=== PATIENT | female | born 1975 | race Caucasian/White ===

== ENCOUNTER 2017-03-25 16:26 | Emergency (ER) | payer MEDICAID ==
[2017-03-25 16:37] VITALS: BP 116/73
[2017-03-25] MEDS ORDERED: DEXAMETHASONE 10 MG/ML VIAL PO STA (17:27)
[2017-03-25] MEDS ORDERED: KETOROLAC 60 MG/2 ML VIAL IM STA (17:30)
--- NOTE | 2017-03-25 17:39 | ED Physician Documentation ---
PD HPI UPPER EXT INJURY - Stated complaint Stated Complaint: L SHOULDER PX-INJ - Chief complaint Chief Complaint: Ext Problem - History obtained from History obtained from: Patient - History of Present Illness Location: Left, Shoulder Type of injury: Other (use with mowing the lawn) Where injury occurred: Home Timing - onset: How many weeks ago (1) Timing - duration: Weeks (1) Timing - details: Gradual onset, Still present Improved by: Rest, Immobilization Worsened by: Moving, Palpating Associated symptoms: No: Weakness, Numbness, Tingling, Swelling Contributing factors: No: Anticoagulated Similar symptoms before: Has not had sx before Recently seen: Not recently seen - Additonal information Additional information: 41 y/o female with pain in the left shoulder. This started while she was mowing the lawn and it has not improved and in fact is worse Review of Systems Constitutional: denies: Fever Eyes: denies: Decreased vision Ears: denies: Ear pain Nose: denies: Congestion Throat: denies: Sore throat Respiratory: denies: Dyspnea, Cough GI: denies: Vomiting : denies: Dysuria Musculoskeletal: reports: Neck pain, Extremity pain, Joint pain Neurologic: denies: Generalized weakness, Focal weakness PD PAST MEDICAL HISTORY - Past Medical History Past Medical History: Yes Cardiovascular: None Respiratory: Asthma, Pneumonia Neuro: Headache/migraine Endocrine/Autoimmune: None GI: None FINISH SPECIALIST: None : None Psych: Depression, Anxiety, Panic attacks, Post traumatic stress disorder Musculoskeletal: None Derm: None - Past Surgical History Past Surgical History: Yes /FINISH SPECIALIST: Tubal ligation, Other - Present Medications Home Medications: Ambulatory Orders Medication Instructions Recorded Confirmed Hydroxyzine Pamoate 100 mg ORAL QID 06/16/15 03/25/17 busPIRone [Buspar] 10 mg ORAL TID 06/16/15 03/25/17 traZODone [Desyrel] 400 mg ORAL DAILY 06/16/15 03/25/17 Albuterol Sulfate [Proair Hfa 8.5 gm IH QID #1 hfa.aer.ad 08/06/15 03/25/17 Inhaler] HYDROcod/ACETAM 5/325 [[place] 5/325] 1 - 2 ea PO Q6H PRN #15 tablet 03/25/17 - Allergies Allergies/Adverse Reactions: Allergies Allergy/AdvReac Type Severity Reaction Status Date / Time risperidone [From Risperdal] Allergy Respiratory Verified 06/16/15 19:14 - Social History Does the pt smoke?: Yes Smoking Status: Current every day smoker Does the pt drink ETOH?: No Does the pt have substance abuse?: No - Immunizations Immunizations are current?: Yes - POLST Patient has POLST: No PD ED PE NORMAL - Vitals Vital signs reviewed: Yes (normal ) - General General: No acute distress, Well developed/nourished - HEENT HEENT: Atraumatic, PERRL, EOMI - Neck Neck: Supple, no meningeal sign, No bony TTP - Respiratory Respiratory: No respiratory distress - Derm Derm: Normal color, Warm and dry, No rash - Extremities Extremities: No deformity, No edema, Other (There is tenderness anteriorly to the deltoid there is pain with ROM and she is able to hold the shoulder in abduction. The distal N/V is intact. There is some tenderness to the supraspinatous as well..) Results - Vitals Vitals: Vital Signs - 24 hr 03/25/17 16:36 Temperature 36.8 C Heart Rate 92 Respiratory 18 Rate Blood Pressure 116/73 O2 Saturation 100 Oxygen O2 Source Room air - Rads (name of study) left shoulder Radiology: Prelim report reviewed (Impression normal shoulder radiography.), EMP read indepedently, See rad report PD MEDICAL DECISION MAKING - ED course Complexity details: reviewed results, re-evaluated patient, considered differential, d/w patient ED course: 41 y/o female with pain in the left shoulder from over use appears to have bursitis and she is given decadron and toradal and placed into a sling. Departure - Departure Disposition: 01 Home, Self Care Clinical Impression: Bursitis of left shoulder Condition: Stable Instructions: ED Bursitis Follow-Up: Tammi Hanna ARNP [Primary Care Provider] - [facility] [Provider Group] Prescriptions: HYDROcod/ACETAM 5/325 [[place] 5/325] 1 - 2 ea PO Q6H PRN #15 tablet PRN Reason: Pain
[2017-03-25] MEDS ORDERED: DEXAMETHASONE 10 MG/ML VIAL ONE (17:40)
[2017-03-25] MEDS ORDERED: KETOROLAC 60 MG/2 ML VIAL ONE (17:40)
--- NOTE | 2017-03-25 18:01 | XRAY Preliminary Report ---
Exam: XR Shoulder 3 View LT IMPRESSION: Normal shoulder radiography. [facility] SITE ID: [id number]
--- NOTE | 2017-03-25 18:04 | XRAY Report ---
EXAM: LEFT SHOULDER RADIOGRAPHY EXAM DATE: 03/25/2017 05:41 PM. CLINICAL HISTORY: Pain with movement. COMPARISON: None. TECHNIQUE: 3 views. FINDINGS: Bones: Normal. No fracture or bone lesion. Joints: The glenohumeral and acromioclavicular joints are normal. Soft tissues: The visualized hemithorax is unremarkable. No soft tissue swelling. IMPRESSION: Normal shoulder radiography. [facility] Referring Provider Line: [phone] SITE ID: [id number]
[2017-03-25] MEDS ORDERED: HYDROcod/ACET 5/325 Prepack 6 PO ONE ×2 (18:24→18:28)
== END 2017-03-25 18:34 | disposition home or self-care (01) ==
LOC: ED 16:26
DX: M75.52 Bursitis of left shoulder (principal); J45.909 Unspecified asthma, uncomplicated; F17.200 Nicotine dependence, unspecified, uncomplicated
CPT/HCPCS: 96372; 99283; 99284

== ENCOUNTER 2017-06-13 08:00 | Outpatient (CLI) | payer MEDICAID ==
[2017-06-13 19:16] LABS: BASOPHILS % (AUTO) 0.5 %; HGB - HEMOGLOBIN 13.4 g/dL (12.0-16.0); LYMPHOCYTES # (AUTO) 2.8 10^3/uL (1.5-3.5); LYMPHOCYTES % (AUTO) 36.1 %; MEAN CORPUSCULAR HEMOGLOBIN 30.6 pg (27.0-31.0); MEAN CORPUSCULAR HGB CONC 33.5 g/dL (32.0-36.0); MEAN CORPUSCULAR VOLUME 91.4 fL (81.0-99.0); MEAN PLATELET VOLUME 7.9 fL (7.9-10.8); MONOCYTES # (AUTO) 0.6 10^3/uL (0.0-1.0); MONOCYTES % (AUTO) 7.6 %; NEUTROPHILS # (AUTO) 4.4 10^3/uL (1.5-6.6); NEUTROPHILS % (AUTO) 55.8 %; RED BLOOD COUNT 4.38 10^6/uL (4.20-5.40); UNCORRECTED WHITE BLOOD COUNT 7.9 x10^3/uL; WHITE BLOOD COUNT 7.9 x10^3/uL (4.8-10.8)
[2017-06-13 19:26] LABS: ALBUMIN/GLOBULIN RATIO 1.6 (1.0-2.2); BILIRUBIN,TOTAL 0.8 mg/dL (0.2-1.0); BUN - BLOOD UREA NITROGEN 10 mg/dL (6-20); CALCIUM 9.3 mg/dL (8.5-10.3); CARBON DIOXIDE - CO2 25 mmol/L (21-32); CHLORIDE 104 mmol/L (101-111); CREATININE 0.9 mg/dL (0.4-1.0); GFR - MDRD 69 (>89); GLUCOSE 89 mg/dL (70-100); POTASSIUM 3.8 mmol/L (3.5-5.0); SODIUM 137 mmol/L (135-145); TOTAL PROTEIN 7.3 g/dL (6.7-8.2)
== END 2017-06-13 08:01 | disposition home or self-care (01) ==
LOC: LAB.N 08:00
PROVIDERS: ATTEND Nurse Practitioner Gerontology
DX: Z79.899 Other long term (current) drug therapy (principal)
CPT/HCPCS: 36415; 80053; 84443; 85025

== ENCOUNTER 2018-09-25 21:10 | Emergency (ER) | payer MEDICAID ==
--- NOTE | 2018-09-25 22:06 | XRAY Report ---
Reason: injury, husb stepped on foot. Procedure Date: 09/25/2018 Accession Number: [id number] / [id number] Procedure: XR - Foot 3 View LT CPT Code: FULL RESULT: EXAM: LEFT FOOT RADIOGRAPHY EXAM DATE: 09/25/2018 09:53 PM. CLINICAL HISTORY: Left foot injury, stepped on foot. COMPARISON: None. TECHNIQUE: 3 views. FINDINGS: Bones: Normal. No fractures or bone lesions. Joints: Normal. No subluxations. Soft Tissues: Normal. No soft tissue swelling. IMPRESSION: Normal left foot radiography. [facility]
--- NOTE | 2018-09-25 22:08 | ED Physician Documentation ---
PD HPI LOWER EXT INJURY - Stated complaint Stated Complaint: LT FOOT PX - Chief complaint Chief Complaint: Trauma Ext - History obtained from History obtained from: Patient - History of Present Illness PD HPI LOW EXT INJURY LOCATION: Left (Her foot got stepped on a few days ago and reinjured it by dropping a box on it today. She points to the distal first and second metatarsals as the area of pain. 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 : None Psych: Depression, Anxiety, Panic attacks, Post traumatic stress disorder Musculoskeletal: None Derm: None - Past Surgical History Past Surgical History: Yes /FOREMAN OR SUPERVISOR AND OPERATOR: Tubal ligation, Other - Present Medications Home Medications: Ambulatory Orders Medication Instructions Recorded Confirmed busPIRone [Buspar] 10 mg ORAL TID 06/16/15 03/25/17 hydrOXYzine pamoate [Hydroxyzine 100 mg ORAL QID 06/16/15 03/25/17 Pamoate] traZODone [Desyrel] 400 mg ORAL DAILY 06/16/15 03/25/17 Albuterol Sulfate [Proair Hfa 8.5 gm IH QID #1 hfa.aer.ad 08/06/15 03/25/17 Inhaler] HYDROcod/ACETAM 5/325 [[place] 5/325] 1 - 2 ea PO Q6H PRN #15 tablet 03/25/17 Hydrocodone/Acetaminophen 1 - 2 each PO Q6H PRN #7 tablet 09/25/18 [Hydrocodon-Acetaminophen 5-325] - Allergies Allergies/Adverse Reactions: Allergies Allergy/AdvReac Type Severity Reaction Status Date / Time quetiapine [From Seroquel] Allergy Unknown Verified 09/25/18 21:36 risperidone [From Risperdal] Allergy Respiratory Verified 09/25/18 21:35 venlafaxine [From Effexor] Allergy Unknown Verified 09/25/18 21:36 - Social History Does the pt smoke?: Yes Smoking Status: Current every day smoker Does the pt drink ETOH?: No Does the pt have substance abuse?: No - Immunizations Immunizations are current?: Yes - POLST Patient has POLST: No PD ED PE NORMAL - Vitals Vital signs reviewed: Yes - General General: Alert and oriented X 3, No acute distress - Extremities Extremities: Other (Mild tenderness and swelling of the distal first and second metatarsals without deformity.) - Neuro Neuro: Alert and oriented X 3, Normal speech Results - Vitals Vitals: Vital Signs - 24 hr 09/25/18 21:33 Temperature 36.0 C L Heart Rate 76 Respiratory 16 Rate Blood Pressure 126/62 O2 Saturation 99 Oxygen O2 Source Room air - Rads (name of study) 3v L foot Radiology: EMP read contemporaneously (normal) Departure - Departure Disposition: Home, Self Care Clinical Impression: Injury of foot Qualifiers: Encounter type: initial encounter Laterality: left Qualified Code(s): S99.922A - Unspecified injury of left foot, initial encounter Condition: Good Record reviewed to determine appropriate education?: Yes Instructions: ED Contusion Foot Prescriptions: Hydrocodone/Acetaminophen [Hydrocodon-Acetaminophen 5-325] 1 - 2 each PO Q6H PRN #7 tablet PRN Reason: pain Comments: Recheck with your doctor in a week if not better
[2018-09-25] MEDS ORDERED: HYDROcod/ACET 5/325 Prepack 4 PO STA (22:09)
[2018-09-25 22:23] VITALS: BP 123/68
== END 2018-09-25 22:23 | disposition home or self-care (01) ==
LOC: ED 21:10
DX: S99.922A Unspecified injury of left foot, initial encounter (principal); W20.8XXA Other cause of strike by thrown, projected or falling object, initial encounter; F17.200 Nicotine dependence, unspecified, uncomplicated
CPT/HCPCS: 99283

== ENCOUNTER 2019-07-31 15:42 | Outpatient (CLI) | payer MEDICAID ==
--- NOTE | 2019-07-31 17:32 | Ultrasound Report ---
Reason: NAUSEA, ABDOMINAL PAIN Procedure Date: 07/31/2019 Accession Number: [id number] / [id number] Procedure: US - Abdomen Complete CPT Code: FULL RESULT: EXAM: ABDOMEN ULTRASOUND EXAM DATE: 07/31/2019 04:45 PM. CLINICAL HISTORY: NAUSEA, ABDOMINAL PAIN. COMPARISON: None. TECHNIQUE: Real-time scanning was performed with static images obtained. FINDINGS: Liver: The liver is mildly hyperechoic. There is a 9 mm circumscribed hyperechoic focus in the right hepatic lobe. 13.1 cm. Main portal vein flow: Hepatopetal. Gallbladder: Normal. No stones, wall thickening, or sonographic Bush's sign. Biliary System: Common bile duct measures 3 mm. No intrahepatic or extrahepatic ductal dilatation. Pancreas: There is a heterogeneous rounded 1.7 x 1.4 x 1.5 cm masslike lesion in the pancreatic body. No significant flow seen within this lesion. There is no associated pancreatic duct dilatation. No peripancreatic fluid collections. Kidneys: Right: 9.6 cm longitudinally. Normal. No contour-deforming mass, stones, or hydronephrosis. Left: 10.0 cm longitudinally. Normal. No contour-deforming mass, stones, or hydronephrosis. Spleen: 9 x 2.7 x 8.1 cm. Normal in size and echotexture. Aorta and Inferior Vena Cava: Unremarkable. Other: None. IMPRESSION: 1. Heterogeneous 1.7 cm masslike focus in the pancreatic body concerning for neoplasm versus focal pancreatitis. Dedicated pancreatic MRI or CT recommended for further characterization. 2. No evidence of cholelithiasis, cholecystitis or bile duct obstruction. 3. Mild fatty liver infiltration. There is a 9 mm hyperechoic focus in the right hepatic lobe most likely representing a hemangioma. This may be further characterized at time of above pancreatic imaging. [place] The call report notification system was initiated by Dr. Shakeel Ramirez at 05:27 PM on 07/31/2019. ADDENDUM: 07/31/19 17:50 The above call report findings were discussed with Julien by Dr. Shakeel Ramirez at 05:50 PM on 07/31/2019.
== END 2019-07-31 15:43 | disposition home or self-care (01) ==
LOC: DI 15:42
PROVIDERS: ATTEND Nurse Practitioner Gerontology
DX: R11.0 Nausea (principal); R10.9 Unspecified abdominal pain; K86.89 Other specified diseases of pancreas
CPT/HCPCS: 76700

== ENCOUNTER 2019-08-05 15:03 | Outpatient (CLI) | payer MEDICAID ==
[2019-08-05] MEDS ORDERED: IOVERSOL 320 100 ML VIAL IVP ONE ×2 (15:19→15:48)
--- NOTE | 2019-08-05 16:34 | CT Report ---
Reason: PANCREATIC LESION, NAUSEA, ABD PAIN Procedure Date: 08/05/2019 Accession Number: [id number] / [id number] Procedure: CT - ABDOMEN W/WO CPT Code: FULL RESULT: EXAM: CT ABDOMEN WITHOUT AND WITH CONTRAST EXAM DATE: 08/05/2019 03:45 PM. HISTORY: PANCREATIC LESION, NAUSEA, ABD PAIN. COMPARISON: ABDOMEN COMPLETE 07/31/2019 3:57 PM. TECHNIQUE: Routine helical CT imaging was performed through the abdomen before and after administration of IV contrast: 100 cc Optiray 320 IV. Enteric contrast: No. Reconstruction: Coronal and sagittal. In accordance with CT protocol optimization, one or more of the following dose reduction techniques were utilized for this exam: automated exposure control, adjustment of mA and/or KV based on patient size, or use of iterative reconstructive technique. FINDINGS: Lung Bases: Unremarkable. Liver: Normal. No masses. Gallbladder/Bile Ducts: Unremarkable. Spleen: Normal. Pancreas: The pancreas is normal in size and contour. There is no focal pancreatic mass. The pancreatic parenchyma appears of uniform density and demonstrates normal enhancement in the arterial and venous phases. No pancreatic duct dilation. No peripancreatic phlegmon or fluid collection. Adrenal Glands: Normal. Kidneys: Normal. No masses or hydronephrosis. Peritoneal Cavity/Bowel: Normal. No free fluid, free air or adenopathy. No masses or acute inflammatory process. The appendix is well visualized and normal. Vasculature: The abdominal aorta is normal in caliber. Bones: No significant abnormality. Other: None. IMPRESSION: 1. Normal-appearing pancreas. No CT pancreatic abnormality. 2. Otherwise unremarkable exam. [facility] The call report notification system was initiated by Dr. Jose Hutchins at 04:32 PM on 08/05/2019.
== END 2019-08-05 15:04 | disposition home or self-care (01) ==
LOC: DI 15:03
PROVIDERS: ATTEND Nurse Practitioner Gerontology
DX: R11.0 Nausea (principal); R10.9 Unspecified abdominal pain
CPT/HCPCS: 74170; Q9967

== ENCOUNTER 2019-10-11 21:42 | Outpatient (CLI) | payer MEDICAID | END 2019-10-11 21:43 | disposition short-term general hospital (02) | LOC: EMS 21:42 | PROVIDERS: ATTEND Surgery | DX: M25.512 Pain in left shoulder (principal); W18.2XXA Fall in (into) shower or empty bathtub, initial encounter; Y92.002 Bathroom of unspecified non-institutional (private) residence as the place of occurrence of the external cause | CPT/HCPCS: A0425; A0429 ==

== ENCOUNTER 2019-10-11 21:59 | Emergency (ER) | payer MEDICAID ==
[2019-10-11] MEDS ORDERED: oxyCODONE 5 MG TABLET PO STA (22:04)
--- NOTE | 2019-10-11 22:06 | ED Physician Documentation ---
PD HPI UPPER EXT INJURY - Stated complaint Stated Complaint: LEFT SHOULDER PAIN - Chief complaint Chief Complaint: Trauma Ext - History obtained from History obtained from: Patient, EMS - History of Present Illness Location: Left (About 3 or 4 days ago had a fall in the tub while she was getting out and hit her shoulder on the edge of the tub. She has had increasingly severe anterior and posterior shoulder pain since with radiation to the neck and down the arm. No other injuries. 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 : None HEENT: None Psych: Depression, Anxiety, Panic attacks, Post traumatic stress disorder Musculoskeletal: None Derm: None - Past Surgical History Past Surgical History: Yes /SENIOR COURT OFFICE ASSISTANT: Tubal ligation, Other - Present Medications Home Medications: Ambulatory Orders Medication Instructions Recorded Confirmed busPIRone [Buspar] 10 mg ORAL TID 06/16/15 03/25/17 hydrOXYzine pamoate [Hydroxyzine 100 mg ORAL QID 06/16/15 03/25/17 Pamoate] traZODone [Desyrel] 400 mg ORAL DAILY 06/16/15 03/25/17 Albuterol Sulfate [Proair Hfa 8.5 gm IH QID #1 hfa.aer.ad 08/06/15 03/25/17 Inhaler] HYDROcod/ACETAM 5/325 [[place] 5/325] 1 - 2 ea PO Q6H PRN #15 tablet 03/25/17 Hydrocodone/Acetaminophen 1 - 2 each PO Q6H PRN #7 tablet 09/25/18 [Hydrocodon-Acetaminophen 5-325] Oxycodone HCl/Acetaminophen 1 - 2 each PO Q6H PRN #14 tablet 10/11/19 [Percocet 5-325 mg Tablet] - Allergies Allergies/Adverse Reactions: Allergies Allergy/AdvReac Type Severity Reaction Status Date / Time quetiapine [From Seroquel] Allergy Unknown Verified 10/11/19 22:05 risperidone [From Risperdal] Allergy Respiratory Verified 10/11/19 22:05 venlafaxine [From Effexor] Allergy Unknown Verified 12/13/19 22:05 - Social History Does the pt smoke?: Yes Smoking Status: Current every day smoker Does the pt drink ETOH?: No Does the pt have substance abuse?: No - Immunizations Immunizations are current?: Yes - POLST Patient has POLST: No PD ED PE NORMAL - Vitals Vital signs reviewed: Yes - General General: Alert and oriented X 3, No acute distress - HEENT HEENT: PERRL, EOMI - Neck Neck: Supple, no meningeal sign, No bony TTP - Cardiac Cardiac: RRR, No murmur - Respiratory Respiratory: No respiratory distress, Clear bilaterally - Abdomen Abdomen: Non tender - Back Back: No spinal TTP - Extremities Extremities: Other (The shoulder is without deformity, she is able to internally and externally rotated. She is quite tender over the upper humerus and AC joint, again without deformity though. Normal radial pulses and sensation thro ughout the hand.) - Neuro Neuro: Alert and oriented X 3, Normal speech Results - Vitals Vitals: Vital Signs - 24 hr 10/11/19 10/11/19 10/11/19 22:00 22:10 22:29 Temperature 37.0 C Heart Rate 74 Respiratory 18 16 17 Rate Blood Pressure 134/75 H O2 Saturation 99 10/11/19 22:36 Temperature 36.9 C Heart Rate 68 Respiratory 20 Rate Blood Pressure 113/72 O2 Saturation 98 Oxygen O2 Source Room air - Rads (name of study) Three-view x-ray of the left shoulder Radiology: EMP read contemporaneously (Negative) Departure - Departure Disposition: 01 Home, Self Care Clinical Impression: Contusion of left shoulder Qualifiers: Encounter type: initial encounter Qualified Code(s): S40.012A - Contusion of left shoulder, initial encounter Condition: Good Record reviewed to determine appropriate education?: Yes Instructions: ED Contusion Shoulder Follow-Up: [facility] [Provider Group] - Within 1 week Prescriptions: Oxycodone HCl/Acetaminophen [Percocet 5-325 mg Tablet] 1 - 2 each PO Q6H PRN #14 tablet PRN Reason: pain Comments: Your blood pressure was elevated today on check into the emergency department. This does not mean that you have hypertension, it is a common phenomenon to come to the emergency department and have elevated blood pressure. I recommend that you see your primary care physician within the week to have it rechecked when you are feeling better. Do not drink or drive while taking narcotic pain medication. Note that many narcotic pain relievers also contain Tylenol/acetaminophen. Please ensure that your total dose of acetaminophen from all sources does not exceed 3 g (3000 mg) per day. You may get constipated while on this medication. Take a stool softener such as Colace twice a day while you are on it. Also add an [id number]-xkh-ydpiwrf laxative such as senna or MiraLAX on any day that you do not have a bowel movement. If you received a narcotic pain medication or sedative while in the emergency department, do not drive for the next 24 hours.
[2019-10-11] MEDS ORDERED: oxyCODONE/ACET 5/325 Prepack 4 PO STA (22:26)
[2019-10-11 22:37] VITALS: BP 113/72
--- NOTE | 2019-10-11 22:54 | XRAY Report ---
Reason: shoulder inj Procedure Date: 10/11/2019 Accession Number: [id number] / [id number] Procedure: XR - Shoulder 3 View LT CPT Code: Final Report FULL RESULT: EXAM: LEFT SHOULDER RADIOGRAPHY EXAM DATE: 10/11/2019 10:25 PM. CLINICAL HISTORY: Shoulder pain after injury. COMPARISON: SHOULDER 3 VIEW LT 03/25/2017 5:32 PM. TECHNIQUE: 4 views. FINDINGS: Bones: No fracture seen. Joints: No dislocation. Joints appear intact as imaged. Soft tissues: Grossly unremarkable. IMPRESSION: 1. No acute abnormality seen in the shoulder. [facility]
== END 2019-10-11 23:20 | disposition home or self-care (01) ==
LOC: EDUNIT# → ED 21:59
DX: S40.012A Contusion of left shoulder, initial encounter (principal); W18.2XXA Fall in (into) shower or empty bathtub, initial encounter; Y93.E1 Activity, personal bathing and showering; Y92.002 Bathroom of unspecified non-institutional (private) residence as the place of occurrence of the external cause; R03.0 Elevated blood-pressure reading, without diagnosis of hypertension; F17.200 Nicotine dependence, unspecified, uncomplicated
CPT/HCPCS: 73030; 99283; 99284; A9270

== ENCOUNTER 2020-11-26 14:48 | Outpatient (CLI) | payer MEDICAID ==
[2020-11-26 18:17] LABS: ALBUMIN 4.1 g/dL (3.2-5.5); ALBUMIN/GLOBULIN RATIO 1.5 (1.0-2.2); ALKALINE PHOSPHATASE 60 IU/L (42-121); ALT ALANINE AMINOTRANSFERASE 22 IU/L (10-60); AST ASPARTATE AMINOTRANSFERASE 19 IU/L (10-42); BILIRUBIN,TOTAL 0.7 mg/dL (0.2-1.0); BUN - BLOOD UREA NITROGEN 12 mg/dL (6-20); CALCIUM 9.4 mg/dL (8.5-10.3); CARBON DIOXIDE - CO2 26 mmol/L (21-32); CHLORIDE 103 mmol/L (101-111); CHOL/HDL RATIO 4.6 (<4.4); CHOLESTEROL 255 mg/dL; CREATININE 0.9 mg/dL (0.4-1.0); GLUCOSE 97 mg/dL (70-100); HDL CHOLESTEROL 56 mg/dL; LDL CHOLESTEROL,CALCULATED 170 mg/dL; TOTAL PROTEIN 6.8 g/dL (6.7-8.2); VLDL CHOLESTEROL 29 mg/dL
== END 2020-11-26 14:49 | disposition home or self-care (01) ==
LOC: LAB.N 14:48
PROVIDERS: ATTEND Internal Medicine
DX: Z13.9 Encounter for screening, unspecified (principal); F41.8 Other specified anxiety disorders
CPT/HCPCS: 36415; 80053; 80061; 83721; 84443

== ENCOUNTER 2020-11-26 14:59 | Outpatient (CLI) | payer MEDICAID ==
--- NOTE | 2020-11-26 17:31 | XRAY Report ---
PROCEDURE: Lumbar Spine 2 View INDICATIONS: BACK PAIN, ACUTE TECHNIQUE: 2 views of the lumbar spine were acquired. COMPARISON: None. FINDINGS: Bones: 5 [id number] vertebrae are present. There is normal bony alignment. No vertebral body compression fractures. No suspicious bony lesions. Minimal foraminal narrowing noted at L5-S1. Soft tissues: Overlying bowel gas pattern is normal. No suspicious soft tissue calcifications. IMPRESSION: Minimal L5-S1 foraminal narrowing. Reviewed by: Sherita Carlos MD on 11/26/2020 5:30 PM PST Approved by: Sherita Carlos MD on 11/26/2020 5:30 PM [facility] Station ID: [id number]
== END 2020-11-26 15:00 | disposition home or self-care (01) ==
LOC: DI.N 14:59
PROVIDERS: ATTEND Internal Medicine
DX: M48.07 Spinal stenosis, lumbosacral region (principal); Z13.9 Encounter for screening, unspecified; F41.8 Other specified anxiety disorders
CPT/HCPCS: 36415; 80053; 80061; 83721; 84443

== ENCOUNTER 2022-08-04 19:25 | Outpatient (CLI) | payer MEDICAID | END 2022-08-04 19:26 | disposition critical access hospital (66) | LOC: EMS 19:25 | DX: R53.1 Weakness (principal); R11.0 Nausea | CPT/HCPCS: A0425; A0429; A0999 ==

== ENCOUNTER 2022-08-04 19:43 | Emergency (ER) | payer MEDICAID ==
[2022-08-04 20:23] LABS: BASOPHILS % (AUTO) 0.4 %; HCT - HEMATOCRIT 36.9 % (37.0-47.0); HGB - HEMOGLOBIN 12.6 g/dL (12.0-16.0); LYMPHOCYTES # (AUTO) 3.5 10^3/uL (1.5-3.5); MEAN CORPUSCULAR HEMOGLOBIN 30.7 pg (27.0-31.0); MEAN CORPUSCULAR HGB CONC 34.1 g/dL (32.0-36.0); MEAN CORPUSCULAR VOLUME 89.8 fL (81.0-99.0); MEAN PLATELET VOLUME 9.8 fL (7.9-10.8); MONOCYTES # (AUTO) 0.7 10^3/uL (0.0-1.0); MONOCYTES % (AUTO) 8.9 %; NEUTROPHILS # (AUTO) 3.2 10^3/uL (1.5-6.6); NEUTROPHILS % (AUTO) 43.4 %; PLT - PLATELET COUNT 271 10^3/uL (130-450); RED BLOOD COUNT 4.11 10^6/uL (4.20-5.40); RED CELL DISTRIBUTION WIDTH 12.4 % (12.0-15.0); WHITE BLOOD COUNT 7.4 x10^3/uL (4.8-10.8)
[2022-08-04 20:28] LABS: BILIRUBIN,URINE NEGATIVE (NEGATIVE); GLUCOSE, URINE (UA) NEGATIVE (NEGATIVE); KETONES,URINE (UA) NEGATIVE (NEGATIVE); LEUKOCYTE ESTERASE, URINE NEGATIVE (NEGATIVE); NITRITE,URINE NEGATIVE (NEGATIVE); OCCULT BLOOD,URINE NEGATIVE (NEGATIVE); PROTEIN,URINE NEGATIVE (NEGATIVE); UROBILINOGEN,URINE 0.2 (NORMAL) E.U./dL (NORMAL)
[2022-08-04 20:30] LABS: ALBUMIN 3.9 g/dL (3.2-5.5); ALBUMIN/GLOBULIN RATIO 1.4 (1.0-2.2); BILIRUBIN,TOTAL 0.6 mg/dL (0.2-1.0); CALCIUM 8.9 mg/dL (8.5-10.3); CREATININE 0.9 mg/dL (0.4-1.0); POTASSIUM 3.6 mmol/L (3.5-5.0); TOTAL PROTEIN 6.7 g/dL (6.7-8.2)
--- NOTE | 2022-08-04 20:30 | ED Physician Documentation ---
History of Present Illness - Stated complaint Stated Complaint: NAUSEA, WEAKNESS, RUQ PAIN, TENDERNESS - Chief complaint Chief Complaint: Abd Pain - History obtained from History obtained from: Patient - History of Present Illness Timing: How many weeks ago (2-3) Pain level now: 2 Improved by: no ameliorating factors Worsened by: no exacerbating factors - Additonal information Additional information: BIBA, c/o 2-3 weeks of nausea without vomiting, fatigue ("no energy", per patient), generalized weakness, and cramping abdominal pain predominantly RUQ. Patient had RUQ US last week which showed findings s/o steatohepatitis or potentially viral hepatitis. Patient denies heavy/regular alcohol consumption (her description is that of negligible alcohol intake over past several years). No recent travel out of [place] Denies fever. Has zofran at home with some relief of nausea with this medication. Review of Systems Constitutional: reports: Fatigue. denies: Fever, Chills, Myalgias, Sweats Cardiac: reports: Reviewed and negative Respiratory: reports: Reviewed and negative GI: reports: Abdominal Pain, Nausea. denies: Abdominal Swelling, Vomiting, Constipation, Diarrhea, Hematemesis, Bloody / black stool PD PAST MEDICAL HISTORY - Past Medical History Past Medical History: Yes - Present Medications Home Medications: Ambulatory Orders Medication Instructions Recorded Confirmed busPIRone [Buspar] 10 mg ORAL TID 06/16/15 03/25/17 hydrOXYzine pamoate [Hydroxyzine 100 mg ORAL QID 06/16/15 03/25/17 Pamoate] traZODone [Desyrel] 400 mg ORAL DAILY 06/16/15 03/25/17 Albuterol Sulfate [Proair Hfa 8.5 gm IH QID #1 hfa.aer.ad 08/06/15 03/25/17 Inhaler] HYDROcod/ACETAM 5/325 [[place] 5/325] 1 - 2 ea PO Q6H PRN #15 tablet 03/25/17 Hydrocodone/Acetaminophen 1 - 2 each PO Q6H PRN #7 tablet 09/25/18 [Hydrocodon-Acetaminophen 5-325] Oxycodone HCl/Acetaminophen 1 - 2 each PO Q6H PRN #14 tablet 10/11/19 [Percocet 5-325 mg Tablet] - Allergies Allergies/Adverse Reactions: Allergies Allergy/AdvReac Type Severity Reaction Status Date / Time quetiapine [From Seroquel] Allergy Unknown Verified 08/05/22 08:45 risperidone [From Risperdal] Allergy Respiratory Verified 08/05/22 08:45 venlafaxine [From Effexor] Allergy Unknown Verified 08/05/22 08:45 fluoxetine [From Prozac] AdvReac Nausea Verified 08/05/22 08:45 sertraline [From Zoloft] AdvReac Nausea Verified 08/05/22 08:45 PD ED PE NORMAL - Vitals Vital signs reviewed: Yes - General General: Alert and oriented X 3, No acute distress, Well developed/nourished - HEENT HEENT: Moist mucous membranes - Neck Neck: Supple, no meningeal sign - Cardiac Cardiac: RRR, No murmur, No gallop, No rub - Respiratory Respiratory: No respiratory distress, Clear bilaterally - Abdomen Abdomen: Normal bowel sounds, Soft, Non distended, Other (mild epigastric tenderness to palpation without rebound or guarding) - Derm Derm: Normal color, Warm and dry - Extremities Extremities: No edema Results - Vitals Vitals: Oxygen O2 Source Room air - Labs Labs: Laboratory Tests 08/04/22 08/04/22 08/04/22 20:14 20:14 20:14 WBC 7.4 RBC 4.11 L Hgb 12.6 Hct 36.9 L MCV 89.8 MCH 30.7 MCHC 34.1 RDW 12.4 Plt Count 271 MPV 9.8 Neut # (Auto) 3.2 Lymph # (Auto) 3.5 Bucks # (Auto) 0.7 Eos # (Auto) 0.0 Baso # (Auto) 0.0 Absolute Nucleated RBC 0.00 Nucleated RBC % 0.0 Sodium 135 Potassium 3.6 Chloride 106 Carbon Dioxide 24 Anion Gap 5.0 L BUN 11 Creatinine 0.9 Estimated GFR (MDRD) 67 L Glucose 99 Calcium 8.9 Total Bilirubin 0.6 AST 12 ALT 12 Alkaline Phosphatase 57 Total Protein 6.7 Albumin 3.9 Globulin 2.8 Albumin/Globulin Ratio 1.4 Lipase 61 H Urine Color YELLOW Urine Clarity CLEAR Urine pH 6.0 Ur Specific [place] >=1.030 H Urine Protein NEGATIVE Urine Glucose (UA) NEGATIVE Urine Ketones NEGATIVE Urine Occult Blood NEGATIVE Urine Nitrite NEGATIVE Urine Bilirubin NEGATIVE Urine Urobilinogen 0.2 (NORMAL) Ur Leukocyte Esterase NEGATIVE Ur Microscopic Review NOT INDICATED Urine Culture Comments NOT INDICATED Urine HCG, Qual NEGATIVE PD MEDICAL DECISION MAKING - ED course Complexity details: reviewed old records, reviewed results, re-evaluated patient, considered differential, d/w patient ED course: No concerning findings on tonight's blood tests and UA. Normal WBC and LFTs are normal. Minimally elevated lipase (61). Further emergent testing unlikely to yield diagnosis or indicate a specific intervention/treatment. Cause of symptoms remains unclear at this time. Results d/w patient and I encouraged her to pursue follow up with PMD for reevaluation , possible further testing and/or referral to specialist at PMD's discretion. Hepatitis panel was sent considering US reading s/o viral hepatitis although this would be an unlikely etiology given that her LFTs are normal at this time. Pancreatitis also considered considering elevated lipase and epigastric TTP, but the lipase is minimally elevated and smoldering course over 2-3 weeks would be atypical for pancreatitis. Departure - Departure Disposition: 01 Home, Self Care Clinical Impression: Abdominal pain Qualifiers: Abdominal location: upper abdomen, unspecified Qualified Code(s): R10.10 - Upper abdominal pain, unspecified Condition: Good Instructions: ED Abdominal Pain Female Non-Specific Abdominal Pain Follow-Up: Carson Ny MD [Physician No Access] - Comments: The results of tonight's tests have no concerning nor diagnostic findings. As we discussed, your pancreatic enzyme (lipase) is very mildly elevated. An elevated lipase can indicate inflammation of the pancreas (pancreatitis), but typically the blood tests is several times more elevated than tonight's test result. If your symptoms worsen, and/or if on repeat testing the suspicion is stronger for pancreatitis, a CT scan often will help make this diagnosis. As we discussed, this was not performed tonight because it seems too unlikely to warrant emergent testing. Please follow up with your primary care provider; further testing might be necessary (even CT scan, which can be performed in outpatient setting if your doctor recommends this). [facility] The results should be available for your primary care provider to review. This test was performed due to the ultrasound (performed last week) showing findings possibly suggesting viral hepatitis. As we discussed, I think this is not a likely explanation, as your liver function tests (blood tests) are normal tonight (with hepatitis, particularly when causing symptoms, the liver enzyme tests are typically elevated). Forms: Activity restrictions Discharge Date/Time: 08/04/22 22:08
[2022-08-04 20:32] LABS: CLARITY,URINE CLEAR (CLEAR); HCG UR QUAL NEGATIVE
[2022-08-04] MEDS ORDERED: PROMETHAZINE 25 MG TABLET PO STA (20:57)
[2022-08-04 22:08] VITALS: BP 106/54
[2022-08-06 04:08] LABS: HBsAG SCREEN Negative (Negative); HCV AB <0.1 s/co ratio (0.0-0.9); HEPATITIS B CORE IGM AB Negative (Negative)
== END 2022-08-04 22:08 | disposition home or self-care (01) ==
LOC: EDUNIT# → MERGE 19:43 → ED 19:43
DX: R10.11 Right upper quadrant pain (principal)
CPT/HCPCS: 36415; 80053; 81003; 81025; 83690; 85025; 86705; 86709; 86803; 87340; 99283; 99284; Q0169; 81001; 87086

== ENCOUNTER 2023-06-21 16:54 | Emergency (ER) | payer MEDICAID ==
[2023-06-21 17:12] VITALS: BP 124/60; O2SAT 100
--- NOTE | 2023-06-21 17:40 | ED Physician Documentation ---
PD HPI LOWER EXT INJURY - Stated complaint Stated Complaint: RT FOOT PX - Chief complaint Chief Complaint: Ext Problem - History obtained from History obtained from: Patient - History of Present Illness PD HPI LOW EXT INJURY LOCATION: Right, Toe (5th) Type of injury: Blunt / blow Where injury occurred: Home Timing - onset: How many weeks ago (1) Timing - duration: Weeks (1) Timing - details: Abrupt onset, Still present Improved by: Rest, Ice, Immobilization Worsened by: Moving, Palpating Associated symptoms: Swelling. No: Weakness, Numbness, Tingling Similar symptoms before: Has not had sx before Recently seen: Not recently seen - Additional information Additional information: 48-year-old Xenia Hernández was helping her daughter do some laundry last week when she moved the dryer and she went to clean underneath the dryer. With scooting the dryer around it slammed down on her right small toe. She has gone back to work the last 3 days and has increased swelling and tenderness to the toe. She is wondering if it might be broken. 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: Tubal ligation, Other - Present Medications Home Medications: Ambulatory Orders Medication Instructions Recorded Confirmed busPIRone [Buspar] 10 mg ORAL TID 06/16/15 03/25/17 hydrOXYzine pamoate [Hydroxyzine 100 mg ORAL QID 06/16/15 03/25/17 Pamoate] traZODone [Desyrel] 400 mg ORAL DAILY 06/16/15 03/25/17 Albuterol Sulfate [Proair Hfa 8.5 gm IH QID #1 hfa.aer.ad 08/06/15 03/25/17 Inhaler] HYDROcod/ACETAM 5/325 [[place] 5/325] 1 - 2 tablet PO Q6H PRN #14 tablet 06/21/23 - Allergies Allergies/Adverse Reactions: Allergies Allergy/AdvReac Type Severity Reaction Status Date / Time quetiapine [From Seroquel] Allergy Unknown Verified 06/21/23 17:04 risperidone [From Risperdal] Allergy Respiratory Verified 06/21/23 17:04 venlafaxine [From Effexor] Allergy Unknown Verified 06/21/23 17:04 fluoxetine [From Prozac] AdvReac Nausea Verified 06/21/23 17:04 sertraline [From Zoloft] AdvReac Nausea Verified 06/21/23 17:04 - Social History Does the pt smoke?: Yes Smoking Status: Current every day smoker Does the pt drink ETOH?: No Does the pt have substance abuse?: No - Immunizations Immunizations are current?: Yes - POLST Patient has POLST: No PD ED PE NORMAL - Vitals Vital signs reviewed: Yes (normal ) - General General: Alert and oriented X 3, No acute distress, Well developed/nourished - HEENT HEENT: Atraumatic, PERRL, EOMI - Respiratory Respiratory: No respiratory distress - Derm Derm: Normal color, Warm and dry, No rash - Extremities Extremities: No deformity, Other (swelling and point tenderness to the 5th toe distal phlange not to the MTP joint. ) - Neuro Neuro: Alert and oriented X 3, import coordination and production head 2-12 intact, No motor deficit, No sensory deficit, Normal speech Eye Opening: Spontaneous Motor: Obeys Commands Verbal: Oriented GCS Score: 15 - Psych Psych: Normal mood, Normal affect Results - Vitals Vitals: Vital Signs - 24 hr 06/21/23 16:56 Temperature 36.6 C Heart Rate 67 Respiratory 18 Rate Blood Pressure 124/60 O2 Saturation 100 Oxygen O2 Source Room air - Rads (name of study) toes Relevant Findings:: Prelim report reviewed (Impression no acute osseous abnormality.), EMP independent interpretation of test PD Medical Decision Making - ED course Complexity details: reviewed old records, reviewed results, re-evaluated patient, considered differential, d/w patient, d/w family ED course: 48-year-old female who had a crush injury to her right fifth toe has worsening pain after being on it at work. We have done an x-ray of the toe there is no obvious fracture she is placed into a postop shoe with a metatarsal padding. She is able to stand on this with improved pain control. She does not want a work note. She has missed enough work now and she feels that she will be comfortable enough to stand at work. Departure - Departure Disposition: 01 Home, Self Care Clinical Impression: Toe contusion Qualifiers: Encounter type: initial encounter Toe: lesser toe Damage to nail status: without damage Laterality: right Qualified Code(s): S90.121A - Contusion of right lesser toe(s) without damage to nail, initial encounter Condition: Stable Instructions: ED Contusion Lower Ext Follow-Up: Carson Ny MD [Primary Care Provider] - Prescriptions: HYDROcod/ACETAM 5/325 [[place] 5/325] 1 - 2 tablet PO Q6H PRN #14 tablet PRN Reason: Pain Forms: PCP List Discharge Date/Time: 06/21/23 18:54
--- NOTE | 2023-06-21 18:54 | XRAY Report ---
PROCEDURE: Foot 3 View RT INDICATIONS: PAIN/SWELLING/REDNESS R 5th toe TECHNIQUE: 3 views of the foot were acquired. COMPARISON: None. FINDINGS: Bones: No fractures or dislocations. No suspicious bony lesions. Soft tissues: No suspicious soft tissue calcifications or masses. No radiopaque foreign body. IMPRESSION: No acute osseous abnormality. Reviewed by: Catarino Rodriguez MD on 06/21/2023 6:53 PM PDT Approved by: Catarino Rodriguez MD on 06/21/2023 6:53 PM PDT Station ID: [id number]
== END 2023-06-21 18:54 | disposition home or self-care (01) ==
LOC: ED 16:54
DX: S90.121A Contusion of right lesser toe(s) without damage to nail, initial encounter (principal); W20.8XXA Other cause of strike by thrown, projected or falling object, initial encounter; Y93.E2 Activity, laundry; Y92.009 Unspecified place in unspecified non-institutional (private) residence as the place of occurrence of the external cause; F17.200 Nicotine dependence, unspecified, uncomplicated
CPT/HCPCS: 99283; 99284

== ENCOUNTER 2024-01-08 19:39 | Emergency (ER) | payer MEDICAID ==
--- NOTE | 2024-01-08 20:09 | ED Physician Documentation ---
PD HPI URI - Stated complaint Stated Complaint: COUGH/BEAVERS/FATIGUE - Chief complaint Chief Complaint: General - History obtained from History obtained from: Patient - History of Present Illness Timing - onset: How many days ago (3) Timing duration: Days (3) Timing details: Gradual onset, Still present Associated symptoms: Fever, Chills, Nasal congestion, Dry cough Contributing factors: Sick contact ( with positive COVID test 2 weeks ago and has improved.) Recently seen: Not recently seen Review of Systems Constitutional: reports: Fever, Chills, Myalgias, Fatigue Nose: reports: Congestion. denies: Rhinorrhea / runny nose Throat: reports: Sore throat Respiratory: reports: Cough GI: reports: Nausea. 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, Other - Present Medications Home Medications: Ambulatory Orders Medication Instructions Recorded Confirmed busPIRone [Buspar] 15 mg ORAL TID 06/16/15 01/08/24 hydrOXYzine pamoate [Hydroxyzine 100 mg ORAL QID PRN 06/16/15 01/08/24 Pamoate] traZODone [Desyrel] 300 mg ORAL DAILY 06/16/15 01/08/24 Ondansetron Odt [Zofran] 4 mg TL Q6H PRN #10 tablet 01/08/24 dexAMETHasone [Decadron] 4 mg PO DAILY #5 tablet 01/08/24 - Allergies Allergies/Adverse Reactions: Allergies Allergy/AdvReac Type Severity Reaction Status Date / Time quetiapine [From Seroquel] Allergy Unknown Verified 01/08/24 19:52 risperidone [From Risperdal] Allergy Respiratory Verified 01/08/24 19:52 venlafaxine [From Effexor] Allergy Unknown Verified 01/08/24 19:52 fluoxetine [From Prozac] AdvReac Nausea Verified 01/08/24 19:52 sertraline [From Zoloft] AdvReac Nausea Verified 01/08/24 19:52 - Social History Does the pt smoke?: No Smoking Status: Former smoker Does the pt drink ETOH?: No Does the pt have substance abuse?: No - Immunizations Immunizations are current?: Yes - POLST Patient has POLST: No PD ED PE NORMAL - Vitals Vital signs reviewed: Yes - General General: Alert and oriented X 3, Well developed/nourished - HEENT HEENT: Ears normal, Moist mucous membranes, Pharynx benign - Neck Neck: Supple, no meningeal sign, No adenopathy - Cardiac Cardiac: RRR, No murmur - Respiratory Respiratory: Clear bilaterally - Abdomen Abdomen: Soft, Non tender, No organomegaly - Derm Derm: Normal color, Warm and dry, No rash Results - Vitals Vitals: Oxygen O2 Source Room air - Labs Labs: Laboratory Tests 01/08/24 19:56 Nasal Adenovirus (PCR) NOT DETECTED Nasal B. parapertussis DNA (PCR) NOT DETECTED Nasal Coronavir 229E PCR NOT DETECTED Nasal Coronavir HKU1 PCR NOT DETECTED Nasal Coronavir NL63 PCR NOT DETECTED Nasal Coronavir OC43 PCR NOT DETECTED Nasal Enterovir/Rhinovir PCR NOT DETECTED Nasal Influenza B PCR NOT DETECTED Nasal Influenza A PCR NOT DETECTED Nasal Parainfluen 1 PCR NOT DETECTED Nasal Parainfluen 2 PCR NOT DETECTED Nasal Parainfluen 3 PCR NOT DETECTED Nasal Parainfluen 4 PCR NOT DETECTED Nasal RSV (PCR) NOT DETECTED Nasal B.pertussis DNA PCR NOT DETECTED Nasal C.pneumoniae (PCR) NOT DETECTED Tony Human Metapneumo PCR NOT DETECTED Nasal M.pneumoniae (PCR) NOT DETECTED Nasal SARS-CoV-2 (PCR) NOT DETECTED PD Medical Decision Making - ED course Complexity details: reviewed results, considered differential (patient with flu like symptoms. Miya had COVID couple weeks ago, so a bit long for typical transfer and incubation time. viral panel negative. consider false negative versus some virus not on the panel. No symptoms suggesting bacterial per se. ), d/w patient Departure - Departure Disposition: 01 Home, Self Care Clinical Impression: Acute viral syndrome Condition: Stable Record reviewed to determine appropriate education?: Yes Instructions: ED Viral Syndrome Follow-Up: Carson Ny MD [Primary Care Provider] - Prescriptions: dexAMETHasone [Decadron] 4 mg PO DAILY #5 tablet Ondansetron Odt [Zofran] 4 mg TL Q6H PRN #10 tablet PRN Reason: Nausea / Vomiting Comments: Your viral panel test is negative for the major viruses. It is pretty accurate but perhaps not 100% accurate but at this point is negative for COVID, influenza, RSV, rhinovirus and several others. Obviously you sound like you are having a viral type illness. I would still assume a 4 to 5-day type of duration. I wrote a note for off work today and tomorrow. Stay well-hydrated. Tylenol every 4-6 hours if needed. Ondansetron for nausea. I would try the Decadron anti-inflammatory for to help with cough breathing and aches and pains. I sent these to your preferred pharmacy[facility]. I would anticipate improvement over the next few days. Forms: PCP List, Activity restrictions Discharge Date/Time: 01/08/24 21:28
[2024-01-08] MEDS: dexAMETHasone 4 MG TABLET PO STA (20:31)
[2024-01-08] MEDS: ACETAMINOPHEN 500 MG TABLET PO STA (20:31)
[2024-01-08] MEDS: ONDANSETRON ODT 4 MG TABLET TL STA (20:31)
[2024-01-08 21:04] LABS: B. PARAPERTUSSIS- RESP PCR PAN NOT DETECTED; B. PERTUSSIS- RESP PCR PANEL NOT DETECTED; C. PNEUMONIAE- RESP PCR PANEL NOT DETECTED; CORONAVIRUS 229E-RESP PCR NOT DETECTED; CORONAVIRUS HKU1-RESP PCR NOT DETECTED; CORONAVIRUS NL63-RESP PCR NOT DETECTED; CORONAVIRUS OC43-RESP PCR NOT DETECTED; HUMAN METAPNEUMOVIRUS NOT DETECTED; INFLUENZA A- RESP PCR PANEL NOT DETECTED; INFLUENZA B - RESP PCR PANEL NOT DETECTED; M. PNEUMONIAE- RESP PCR PANEL NOT DETECTED; PARAINFLUENZA VIRUS 1 NOT DETECTED; PARAINFLUENZA VIRUS 2 NOT DETECTED; PARAINFLUENZA VIRUS 3 NOT DETECTED; PARAINFLUENZA VIRUS 4 NOT DETECTED; RHINOVIRUS/ENTEROVIRUS NOT DETECTED; RSV- RESP PCR PANEL NOT DETECTED; SARS-CoV-2 -RESP PCR PANEL NOT DETECTED
[2024-01-08 21:27] VITALS: BP 118/72; O2SAT 97
== END 2024-01-08 21:28 | disposition home or self-care (01) ==
LOC: ED 19:39
DX: B34.9 Viral infection, unspecified (principal); Z11.52 Encounter for screening for COVID-19; J45.909 Unspecified asthma, uncomplicated; Z79.899 Other long term (current) drug therapy; Z87.891 Personal history of nicotine dependence
CPT/HCPCS: 87633; 99283; A9270; J8540; Q0162

== ENCOUNTER 2024-04-29 20:27 | Emergency (ER) | payer OTHER, MEDICAID ==
[2024-04-29 20:50] VITALS: O2SAT 100
--- NOTE | 2024-04-29 20:56 | ED Physician Documentation ---
History of Present Illness - Stated complaint Stated Complaint: FALL/L SIDE PX - Chief complaint Chief Complaint: Trauma Ch/Bk - History obtained from History obtained from: Patient - Additonal information Additional information: Patient is a 48-year-old female presenting for evaluation after a trip and fall yesterday evening. Patient works at [employer] and was closing up for the night when she tripped over a box landing on her left side against a bread rack and a another box. She reports pain in the left shoulder, chest wall, wrist and hip. She did take naproxen this afternoon which has helped slightly. Does not take blood thinners. Did not hit her head. 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: Tubal ligation, Other - Present Medications Home Medications: Ambulatory Orders Medication Instructions Recorded Confirmed busPIRone [Buspar] 15 mg ORAL TID 06/16/15 03/22/24 hydrOXYzine pamoate [Hydroxyzine 100 mg ORAL QID PRN 06/16/15 03/22/24 Pamoate] traZODone [Desyrel] 300 mg ORAL DAILY 06/16/15 03/22/24 Albuterol Sulf [Ventolin Hfa] 8 gm IH PRN PRN 03/22/24 03/22/24 Penicillin Vk 500 mg PO BID 5 Days #20 tablet 03/22/24 Tizanidine HCl 2 mg PO PRN PRN 03/22/24 03/22/24 HYDROcod/ACETAM 5/325 [[place] 5/325] 1 tablet PO Q6H PRN #14 tablet 04/29/24 - Allergies Allergies/Adverse Reactions: Allergies Allergy/AdvReac Type Severity Reaction Status Date / Time quetiapine [From Seroquel] Allergy Unknown Verified 04/29/24 20:41 risperidone [From Risperdal] Allergy Respiratory Verified 04/29/24 20:41 venlafaxine [From Effexor] Allergy Unknown Verified 04/29/24 20:41 fluoxetine [From Prozac] AdvReac Nausea Verified 04/29/24 20:41 sertraline [From Zoloft] AdvReac Nausea Verified 04/29/24 20:41 - Social History Does the pt smoke?: No Smoking Status: Never smoker Does the pt drink ETOH?: No Does the pt have substance abuse?: Yes - Immunizations Immunizations are current?: Yes - POLST Patient has POLST: No PD ED PE NORMAL - General General: Alert and oriented X 3, No acute distress, Well developed/nourished - HEENT HEENT: Atraumatic, PERRL, Moist mucous membranes, Pharynx benign - Neck Neck: Supple, no meningeal sign, No bony TTP, C-Spine cleared by NEXUS criteria - Cardiac Cardiac: RRR, Strong equal pulses, Other (Left-sided chest wall tenderness, no bruising, symmetric chest rise) - Respiratory Respiratory: No respiratory distress, Clear bilaterally - Abdomen Abdomen: Normal bowel sounds, Soft, Non tender, Non distended - Derm Derm: Warm and dry - Extremities Extremities: Other (Pain on range of motion of left shoulder, left wrist and left hip with no visible deformity) - Neuro Neuro: Alert and oriented X 3, No motor deficit, Normal speech Results - Vitals Vitals: Vital Signs - 24 hr 04/29/24 04/29/24 20:32 22:11 Temperature 36.3 C L 36.5 C Heart Rate 63 60 Respiratory 16 16 Rate Blood Pressure 110/67 112/60 O2 Saturation 100 100 Oxygen O2 Source Room air PD Medical Decision Making - ED course Complexity details: reviewed results, re-evaluated patient, d/w patient ED course: Patient with mechanical fall yesterday with pain to left chest wall, shoulder, wrist and hip. She is ambulatory. No head injury. Not on blood thinners. X- rays were obtained which I reviewed.Left 10th rib fracture. No fracture seen elsewhere on imaging. Vital signs are stable. No signs of pneumothorax. Patient given pain medication and Velcro splint was applied to the left wrist. Patient counseled on need for follow-up as well as concerning symptoms to return for. Ambulatory at discharge. Departure - Departure Disposition: 01 Home, Self Care Clinical Impression: Left rib fracture, Left wrist sprain, Left shoulder strain, Strain of left hip Condition: Stable Instructions: ED Fx Rib, ED Sprain Wrist Prescriptions: HYDROcod/ACETAM 5/325 [[place] 5/325] 1 tablet PO Q6H PRN #14 tablet PRN Reason: Pain Comments: Your x-rays today show that you have a fracture of your left 10th rib. There are no signs of fractures in your wrist, shoulder or hip. I have sent a prescription for narcotic pain medication to [facility] in [place]. I would continue also with anti-inflammatories. You should have close follow-up with your primary care. Please make sure you are taking deep breaths throughout the day despite the pain. Return to the ER if you develop any worsening symptoms such as difficulty breathing. I am prescribing a short course of narcotic pain medication for you. These are potentially dangerous and addictive medications that should be used carefully. These medications may constipate you. Take an [id number] stool softener (docusate) twice daily with plenty of water while taking these medications. If you go 24 hours without a bowel movement, take [id number] miralax, per package instructions. Do not drink or drive while taking these medications. If you received narcotic or sedating medications while in the emergency department, do not drive for 24 hours. Store this medication in a safe, secure place and out of reach of children. It is a violation of federal law to give or sell this medication to another person or to use in a manner other than prescribed. The ED will not refill narcotic prescriptions, including prescriptions lost or stolen. To dispose of unwanted medications: 1. [facility] at [address] in [place] has a medication drop box. They accept prescription medications (in pill form) Monday through Monday 9:00 a.m. to 5:00 p.m. 2. The [facility] [employer] [facility] accepts prescription medications (in pill form only) for disposal year round. Call for more information. 3. Contact the [facility] for the next [facility] sponsored prescription drug collection event. , [phone], or [phone]; Note that many narcotic pain relievers also contain Tylenol/acetaminophen. Please ensure that your total dose of acetaminophen from all sources does not exceed 3 g (3000 mg) per day. Forms: PCP List, Activity restrictions Discharge Date/Time: 04/29/24 22:11
--- NOTE | 2024-04-29 21:50 | XRAY Report ---
PROCEDURE: Hip w/Pelvis 2-3V LT INDICATIONS: fall/pain TECHNIQUE: 3 views of the hip were acquired. COMPARISON: None. FINDINGS: Bones: No displaced fracture. No dislocation. Soft tissues: No suspicious calcifications. IMPRESSION: No acute radiographic abnormality. If there is high concern for occult injury, consider repeat radiog raina or cross-sectional imaging. Reviewed by: Baljinder Rosario MD on 04/29/2024 9:48 PM PDT Approved by: Baljinder Rosario MD on 04/29/2024 9:48 PM PDT Station ID: [id number]
--- NOTE | 2024-04-29 21:51 | XRAY Report ---
PROCEDURE: Ribs w/PA Chest 3+V LT INDICATIONS: fall/pain TECHNIQUE: 2 views of the ribs were acquired, along with a single view chest. COMPARISON: None. FINDINGS: Surgical changes and devices: None. Bones and chest wall: Age-indeterminate possible nondisplaced fracture of the 10th rib. Humeral calc ific tendinopathy. Lungs and pleura: No dense consolidation or pleural effusion Mediastinum: Normal heart size IMPRESSION: Possible fracture of the left 10th rib, age indeterminate. Correlate with tenderness. Reviewed by: Baljinder Rosario MD on 04/29/2024 9:50 PM PDT Approved by: Baljinder Rosario MD on 04/29/2024 9:50 PM PDT Station ID: [id number]
--- NOTE | 2024-04-29 21:52 | XRAY Report ---
PROCEDURE: Wrist 3+V LT INDICATIONS: fall/pain TECHNIQUE: 3 views of the wrist were acquired. COMPARISON: None. FINDINGS: Bones: No displaced fracture or dislocation. Soft tissues: No suspicious calcifications IMPRESSION: No acute osseous abnormality. If there is high concern for occult injury, consider repeat radiography or cross-sectional imaging. Reviewed by: Baljinder Rosario MD on 04/29/2024 9:51 PM PDT Approved by: Baljinder Rosario MD on 04/29/2024 9:51 PM PDT Station ID: [id number]
--- NOTE | 2024-04-29 21:53 | XRAY Report ---
PROCEDURE: Shoulder 2+V LT INDICATIONS: fall/pain TECHNIQUE: 3 views of the shoulder were acquired. COMPARISON: 03/25/2017 FINDINGS: Bones: No displaced fracture or dislocation. Mild acromioclavicular degenerative changes. Soft tissues: No suspicious calcifications. IMPRESSION: No acute radiographic abnormality. Mild degenerative changes. If there is high concern for further de rangement, consider MRI evaluation. Reviewed by: Baljinder Rosario MD on 04/29/2024 9:52 PM PDT Approved by: Baljinder Rosario MD on 04/29/2024 9:52 PM PDT Station ID: [id number]
[2024-04-29] MEDS: HYDROcod/ACET 5/325 Prepack 4 PO STA (22:02)
[2024-04-29 22:14] VITALS: BP 112/60
== END 2024-04-29 22:11 | disposition home or self-care (01) ==
LOC: ED 20:27
DX: S22.32XA Fracture of one rib, left side, initial encounter for closed fracture (principal); S63.502A Unspecified sprain of left wrist, initial encounter; S46.912A Strain of unspecified muscle, fascia and tendon at shoulder and upper arm level, left arm, initial encounter; S76.012A Strain of muscle, fascia and tendon of left hip, initial encounter; W01.0XXA Fall on same level from slipping, tripping and stumbling without subsequent striking against object, initial encounter; Y92.511 Restaurant or cafe as the place of occurrence of the external cause; Y99.0 Civilian activity done for income or pay; Z79.899 Other long term (current) drug therapy
CPT/HCPCS: 1040M; 71101; 73030; 73110; 73502; 99283; 99284

== ENCOUNTER 2024-06-17 20:59 | Emergency (ER) | payer MEDICAID ==
[2024-06-17 21:12] VITALS: BP 113/66; O2SAT 99
--- NOTE | 2024-06-17 21:24 | ED Physician Documentation ---
History of Present Illness - Stated complaint Stated Complaint: CHEST PX - Chief complaint Chief Complaint: Resp - History obtained from History obtained from: Patient - Additonal information Additional information: Patient is a 49-year-old female with past medical history of asthma she has a history of vaping and smoking as well. She presents to the emergency department with shortness of breath cough and burning sensation in her chest. She notes symptoms started around 3:00 this afternoon. She tried her albuterol inhaler at home with no significant relief. Patient notes burning and squeezing sensation in her chest when she takes a deep breath. She notes some mild lightheadedness associated with her shortness of breath. She denies any lower leg swelling she has had productive cough and some mild congestion as well recently. She denies any fevers or chills at home. No recent sick contacts. 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 : None HEENT: None Psych: Depression, Anxiety, Panic attacks, Post traumatic stress disorder Musculoskeletal: None Derm: None - Past Surgical History Past Surgical History: Yes /K[employer]SFER OPERATOR: Tubal ligation, Other - Present Medications Home Medications: Ambulatory Orders Medication Instructions Recorded Confirmed busPIRone [Buspar] 15 mg ORAL TID 06/16/15 03/22/24 hydrOXYzine pamoate [Hydroxyzine 100 mg ORAL QID PRN 06/16/15 03/22/24 Pamoate] traZODone [Desyrel] 300 mg ORAL DAILY 06/16/15 03/22/24 Albuterol Sulf [Ventolin Hfa] 8 gm IH PRN PRN 03/22/24 03/22/24 Penicillin Vk 500 mg PO BID 5 Days #20 tablet 03/22/24 Tizanidine HCl 2 mg PO PRN PRN 03/22/24 03/22/24 HYDROcod/ACETAM 5/325 [Union 5/325] 1 tablet PO Q6H PRN #14 tablet 04/29/24 Albuterol Sulf [Ventolin Hfa 1 - 2 puffs INH Q4HR PRN #1 each 06/17/24 Inhaler] predniSONE [Deltasone] 40 mg PO DAILY 5 Days #10 tab 06/17/24 - Allergies Allergies/Adverse Reactions: Allergies Allergy/AdvReac Type Severity Reaction Status Date / Time quetiapine [From Seroquel] Allergy Unknown Verified 06/17/24 21:07 risperidone [From Risperdal] Allergy Respiratory Verified 06/17/24 21:07 venlafaxine [From Effexor] Allergy Unknown Verified 06/17/24 21:07 fluoxetine [From Prozac] AdvReac Nausea Verified 06/17/24 21:07 sertraline [From Zoloft] AdvReac Nausea Verified 06/17/24 21:07 - Social History Does the pt smoke?: No Smoking Status: Never smoker Does the pt drink ETOH?: No Does the pt have substance abuse?: Yes - Immunizations Immunizations are current?: Yes - POLST Patient has POLST: No PD ED PE NORMAL - Vitals Vital signs reviewed: Yes - General General: Alert and oriented X 3 - HEENT HEENT: Atraumatic - Neck Neck: Supple, no meningeal sign, No adenopathy - Cardiac Cardiac: RRR, No murmur, No gallop, No rub - Respiratory Respiratory: Other (CLear breath sounds on auscultation of the lungs bilaterally no appreciable wheezing rhonchi or rails appreciated on auscultation of the lungs.) - Abdomen Abdomen: Normal bowel sounds - Back Back: No CVA TTP, No spinal TTP - Neuro Neuro: Alert and oriented X 3, 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 Eye Opening: Spontaneous Motor: Obeys Commands Verbal: Oriented GCS Score: 15 Results - Vitals Vitals: Vital Signs - 24 hr 06/17/24 21:02 Temperature 36.1 C L Heart Rate 67 Respiratory 16 Rate Blood Pressure 113/66 O2 Saturation 99 Oxygen O2 Source Room air - Labs Labs: Laboratory Tests 06/17/24 06/17/24 21:22 21:22 WBC 6.9 RBC 3.93 L Hgb 11.3 L Hct 34.6 L MCV 88.0 MCH 28.8 MCHC 32.7 RDW 12.2 Plt Count 270 MPV 9.1 Neut # (Auto) 3.0 Lymph # (Auto) 3.3 Bibb # (Auto) 0.6 Eos # (Auto) 0.0 Baso # (Auto) 0.1 Absolute Nucleated RBC 0.00 Nucleated RBC % 0.0 Sodium 138 Potassium 3.4 L Chloride 104 Carbon Dioxide 28 Anion Gap 6.0 BUN 11 Creatinine 1.0 Estimated GFR (MDRD) 59 L Glucose 99 Calcium 9.3 Total Bilirubin 0.3 AST 10 ALT 9 L Alkaline Phosphatase 57 Troponin I High Sens < 2.3 L Total Protein 6.5 Albumin 4.1 Globulin 2.4 Albumin/Globulin Ratio 1.7 Lipase 47 - Rads (name of study) Chest X-ray Relevant Findings:: EMP independent interpretation of test PD Medical Decision Making - ED course Complexity details: reviewed old records, reviewed results ED course: Patient is a 49-year-old female past medical history of asthma history of vaping presents to the emergency department with shortness of breath. Patient's symptoms started early this afternoon after walking into work. Patient became short of breath. She notes a tickle in her throat and a burning sensation to her chest symptoms worsen with taking a deep breath. She tried her inhaler at home with no significant relief. Vital stable on arrival patient is nontachycardic afebrile. Normotensive blood pressure. Clear breath sounds on auscultation of the lungs no appreciable wheezing. Normal cardiac and lung sounds. No lower leg swelling. Pulses intact in upper and lower extremities. Patient given steroids and breathing treatment on arrival. Patient had basic labs and EKG performed for chest pain workup. Patient symptoms resolved shortly after steroids and breathing treatment given. Chest x-ray obtained here in the emergency department shows no acute cardiopulmonary process. EKG shows no acute signs of ischemia. Troponin is within normal range. CBC shows no significant anemia appears close to baseline at 11.1. No significant leukocytosis concerning for infection. CMP shows creatinine of 1.0 no significant YESENIA. Mild hypokalemia noted but no EKG changes. Will supplement orally here in emergency department. Reevaluated patient she is feeling significantly better. Patient finished eating and drinking here in emergency department. Patient feels safe for discharge home. Departure - Departure Disposition: 01 Home, Self Care Clinical Impression: Acute asthma exacerbation, Shortness of breath, Asthma Condition: Good Instructions: Asthma Dc Prescriptions: Albuterol Sulf [Ventolin Hfa Inhaler] 1 - 2 puffs INH Q4HR PRN #1 each PRN Reason: Shortness Of Air/Wheezing predniSONE [Deltasone] 40 mg PO DAILY 5 Days #10 tab Comments: You were seen here in the emergency department for your shortness of breath. Your workup here was reassuring I have given you a course of steroids and new inhaler for your symptoms for acute asthma exasperation. You should follow-up in the outpatient setting with your PCP for reevaluation in 1 week. If you develop any worsening shortness of breath lower leg swelling fevers persistent cough dizziness lightheadedness persistent chest pain or any other new or worsening symptoms return to the emergency department. Forms: PCP List
[2024-06-17 21:27] LABS: BASOPHILS # (AUTO) 0.1 10^3/uL (0.0-0.1); BASOPHILS % (AUTO) 0.7 %; HCT - HEMATOCRIT 34.6 % (37.0-47.0); HGB - HEMOGLOBIN 11.3 g/dL (12.0-16.0); LYMPHOCYTES # (AUTO) 3.3 10^3/uL (1.5-3.5); LYMPHOCYTES % (AUTO) 47.5 %; MEAN CORPUSCULAR HEMOGLOBIN 28.8 pg (27.0-31.0); MEAN CORPUSCULAR HGB CONC 32.7 g/dL (32.0-36.0); MEAN PLATELET VOLUME 9.1 fL (7.9-10.8); MONOCYTES # (AUTO) 0.6 10^3/uL (0.0-1.0); MONOCYTES % (AUTO) 8.2 %; NEUTROPHILS % (AUTO) 43.5 %; PLT - PLATELET COUNT 270 10^3/uL (130-450); RED BLOOD COUNT 3.93 10^6/uL (4.20-5.40); RED CELL DISTRIBUTION WIDTH 12.2 % (12.0-15.0); WHITE BLOOD COUNT 6.9 x10^3/uL (4.8-10.8)
[2024-06-17] MEDS: predniSONE 20 MG TABLET PO STA (21:31)
[2024-06-17 21:46] LABS: ALBUMIN 4.1 g/dL (3.2-5.5); ALBUMIN/GLOBULIN RATIO 1.7 (1.0-2.2); ALKALINE PHOSPHATASE 57 IU/L (42-121); ALT ALANINE AMINOTRANSFERASE 9 IU/L (10-60); AST ASPARTATE AMINOTRANSFERASE 10 IU/L (10-42); BILIRUBIN,TOTAL 0.3 mg/dL (0.2-1.0); BUN - BLOOD UREA NITROGEN 11 mg/dL (6-20); CALCIUM 9.3 mg/dL (8.5-10.3); CARBON DIOXIDE - CO2 28 mmol/L (21-32); CHLORIDE 104 mmol/L (101-111); GFR - MDRD 59 (>89); GLUCOSE 99 mg/dL (74-104); LIPASE 47 U/L (11-82); POTASSIUM 3.4 mmol/L (3.5-4.5); SODIUM 138 mmol/L (135-145); TOTAL PROTEIN 6.5 g/dL (6.4-8.9)
[2024-06-17 21:47] LABS: TROPONIN I HIGH SENSITIVITY < 2.3 ng/L (2.3-14.8)
--- NOTE | 2024-06-17 21:48 | XRAY Report ---
PROCEDURE: Chest 1V INDICATIONS: soa TECHNIQUE: One view of the chest was acquired. COMPARISON: None. FINDINGS: Surgical changes and devices: None. Lungs and pleura: No pleural effusions or pneumothorax. Lungs are clear. Mediastinum: Mediastinal contours appear normal. Heart size is normal. Bones and chest wall: No suspicious bony lesions. Overlying soft tissues appear unremarkable. IMPRESSION: No acute cardiopulmonary process. Reviewed by: Gamal Cortes MD on 06/17/2024 9:47 PM PDT Approved by: Gamal Cortes MD on 06/17/2024 9:47 PM PDT Station ID: [id number]
[2024-06-17] MEDS: ALBUTEROL NEB 2.5 MG/3 ML INH STA (22:24)
[2024-06-17] MEDS ORDERED: ALBUTEROL NEB 2.5 MG/3 ML INH ONE (22:24)
[2024-06-17] MEDS: POTASSIUM CHLORIDE 20 MEQ TABLET PO STA (22:25)
== END 2024-06-17 22:39 | disposition home or self-care (01) ==
LOC: ED 20:59
DX: J45.901 Unspecified asthma with (acute) exacerbation (principal); E87.6 Hypokalemia
CPT/HCPCS: 36415; 71045; 80053; 83690; 84484; 85025; 87635; 93005; 94640; 99284; A9270; J7512